=== PATIENT | female | born 1965 | race Caucasian/White ===

== ENCOUNTER 2016-08-03 11:57 | Day surgery (SDC) | payer OTHER ==
[2016-08-02 16:44] LABS: HEMATOCRIT 44.5 % (36.0-48.0); HEMOGLOBIN 14.5 g/dL (12.0-16.0)
[2016-08-02 16:54] LABS: BUN (BLOOD UREA NITROGEN) 13 MG/DL (6-23); CALCIUM, SERUM 8.9 MG/DL (8.5-10.4); CHLORIDE, SERUM 110 MMOL/L (96-112); CO2 (CARBON DIOXIDE) 27 MMOL/L (24-34); GFR AFRICAN AMERICAN 98 ML/MIN (>=60); GFR NON AFRICAN AMERICAN 85 ML/MIN (>=60); GLUCOSE, SERUM 76 MG/DL (60-99); POTASSIUM, SERUM 4.2 MMOL/L (3.5-5.3); SODIUM, SERUM 145 MMOL/L (135-148)
--- NOTE | ~2016-08-03 | OP ---
Record Of Operation [facility] [address] [place]. [address] NAME: BENJAMIN GUTIERREZ : 63 STATUS : [facility]#: [id number] AGE: 51 ADM/REG DATE : 08/03/16 MR#: [id number] REPORT SERV DATE: 08/03/16 DICTATED BY: NABIL GODFREY DATE: 08/03/16 REPORT STATUS : Draft TRANSCRIBED BY: MODL DATE: 08/03/16 DATE OF PROCEDURE: 08/03/2016 PREOPERATIVE DIAGNOSIS: Epilepsy. POSTOPERATIVE DIAGNOSIS: Epilepsy. OPERATION: VNS generator change and programming. SUMMARY: After adequate general anesthesia, prep and drape, an incision was made directly over the generator carried down through the skin and subcutaneous tissue. The capsule was gently entered bluntly and the generator was dissected free from surrounding tissue and brought out into the incision. This was then disconnected and the new generator was then connected with three clicks and interrogated successfully to 1 milliamp and impedance was okay. The pocket was enlarged bluntly with the aid of the cautery and a larger pocket was made. The generator was placed in the larger pocket and interrogated successfully 1 milliamp and impedance was okay. It was then programmed to an output current of 2.75, signal frequency of 30, pulse width of 500, signal on time of 30 seconds, signal off time magnet, output current 3, pulse width 500, signal on time 60. After adequate irrigation, good hemostasis was obtained. The generator was sutured to the chest wall with 2-0 Prolene suture. Subcutaneous tissue and skin closed in routine fashion after injection of 0.5% Marcaine. The patient tolerated the procedure well and taken to recovery room in satisfactory condition. CARLOS ALBERTO/MITALI Nabil Godfrey M.D. / [id number] CC: Shashank Britton M.D.
[~2016-08-03 11:57] MED LIST: ACET500CAP PO; KEPPRA500 PO; MULTIPLE VIT PO; PHENOBARB32.4 MG PO; PHENOBARB64.8 MG PO; TEG200 PO; TOPAMAX200 MG PO; VIMPAT200 MG PO
== END 2016-08-03 20:21 | disposition home or self-care (01) ==
LOC: SDC 11:57
PROVIDERS: Specialist
PROC: 0NH00NZ Insertion of Neurostimulator Generator into Skull, Open Approach (ICD-10-PCS; 2016-08-03)
PROC: 0NP00NZ Removal of Neurostimulator Generator from Skull, Open Approach (ICD-10-PCS; principal; 2016-08-03 13:45)
DX: G40.909 Epilepsy, unspecified, not intractable, without status epilepticus (principal); I10 Essential (primary) hypertension; F41.9 Anxiety disorder, unspecified; Z88.8 Allergy status to other drugs, medicaments and biological substances; Z79.899 Other long term (current) drug therapy
CPT/HCPCS: 36415; 80048; 85014; 85018; 88300; 93005; C1767; J0330; J0690; J2250; J2405; J2710; J3010